=== PATIENT | male | born 1985 | race Caucasian/White ===

== ENCOUNTER 2024-04-13 11:42 | Emergency (ER) | payer OTHER ==
[2024-04-13 11:49] VITALS: RESP 18; TEMP 98
--- NOTE | 2024-04-13 12:08 | XR ---
EXAMINATION TYPE: XR lumbar spine 2 or 3V DATE OF EXAM: 04/13/2024 12:05 PM CLINICAL INDICATION: Male, 38 years old with history of pain.; [facility] COMPARISON: None TECHNIQUE: XR lumbar spine 2 or 3V - Frontal, lateral and coned in L5-S1 lateral views of the spine. FINDINGS: No evidence of any acute osseous pathology. No evidence of loss of vertebral body height i s seen. There is mild scoliosis alignment of the lumbar vertebral bodies. Scattered disc space narrow ing. Multilevel marginal osteophyte formation throughout the visualized spine. There is facet joint a rthropathy throughout the spine. Scattered at least mild neural foraminal stenosis. IMPRESSION: 1. No acute fracture. 2. Mild multilevel disc degeneration. [facility], , 04/13/2024 12:06 PM
--- NOTE | 2024-04-13 12:38 | ED ---
Back Pain HPI - General Chief Complaint: Back Pain/Injury Stated Complaint: lower back/hip pain Time Seen by Provider: 04/13/24 12:38 Source: patient, RN notes reviewed Limitations: no limitations - History of Present Illness Initial Comments: 38-year-old male presented to ER with a chief complaint of lower back pain. He states he was laying metal sheets on a roof about a week ago when he felt a snap. He states for the past week he has had increasing pain to his lower back and left hip. He states it is painful to walk. He is able to bear weight. Denies any bowel or bladder incontinence, saddle paresthesias, fevers or Hx IV drug use. Patient has tried leftover muscle relaxers, ibuprofen and Tylenol without relief no other injuries or complaints - Related Data Previous Rx's Medication Instructions Recorded Lidocaine 4% Patch 1 patch TOPICAL HS #30 patch 04/13/24 predniSONE 50 mg PO DAILY #5 tab 04/13/24 Allergies Allergy/AdvReac Type Severity Reaction Status Date / Time lisinopril AdvReac Unknown Verified 04/13/24 11:49 Review of Systems ROS Statement: Those systems with pertinent positive or pertinent negative responses have been documented in the HPI. ROS Other: All systems not noted in ROS Statement are negative. Past Medical History Past Medical History: Hypertension Additional Past Medical History / Comment(s): lower back pain . Past Surgical History: No Surgical Hx Reported General Exam - General Exam Comments Initial Comments: Visual Physical Exam Vital signs reviewed General: Well-appearing, nontoxic, no acute distress. Head: Normocephalic, atraumatic Eyes: PERRLA, EOMI ENT: Airway patent Chest: Nonlabored breathing Skin: No visual rash, normal skin tone Neuro: Alert and oriented 3 Musculoskeletal: No gross abnormalities Limitations: no limitations General appearance: alert, in no apparent distress Neck exam: Present: normal inspection. Absent: tenderness, meningismus, lymphadenopathy Respiratory exam: Present: normal lung sounds bilaterally. Absent: respiratory distress, wheezes, rales, rhonchi, stridor Cardiovascular Exam: Present: regular rate, normal rhythm, normal heart sounds. Absent: systolic murmur, diastolic murmur, rubs, gallop, clicks Extremities exam: Present: normal inspection, full ROM, normal capillary refill, other (2+ dorsalis pedis and posterior tibialis pulses bilaterally). Absent: tenderness, pedal edema, joint swelling, calf tenderness Back exam: Present: paraspinal tenderness (Left), other (Straight leg raise bilaterally) Neurological exam: Present: alert, oriented X3, CN II-XII intact Skin exam: Present: warm, dry, intact, normal color. Absent: rash Course Vital Signs 04/13/24 04/13/24 11:46 14:26 Temperature 98 F 98 F Pulse Rate 105 H 93 Respiratory 18 18 Rate Blood Pressure 148/83 128/83 O2 Sat by Pulse 98 98 Oximetry Medical Decision Making - Medical Decision Making I performed the quick note portion of this chart. Electronically signed by Georgi Gorman PA-C Was pt. sent in by a medical professional or institution ([facility], [employer], urgent care, hospital, or alf...) When possible be specific @ -No Did you speak to anyone other than the patient for history (EMS, parent, family, police, friend...)? What history was obtained from this source @ -No Did you review nursing and triage notes (agree or disagree)? Why? @ -I reviewed and agree with nursing and triage notes Were old charts reviewed (outside hosp., previous admission, EMS record, old EKG, old radiological studies, urgent care reports/EKG's, alf records)? Report findings @ -No old charts were reviewed Differential Diagnosis (chest pain, altered mental status, abdominal pain women, abdominal pain men, vaginal bleeding, weakness, fever, dyspnea, syncope, headache, dizziness, GI bleed, back pain, seizure, CVA, palpatations, mental health, musculoskeletal)? @ -Differential Back Pain:Strain, zoster, cauda equina syndrome, epidural abscess, vertebral osteomyelitis, discitis, fracture, subluxation, disc herniation, DJD, spinal stenosis, dissection, AAA, pancreatitis, peptic ulcer disease, pyelonephritis, kidney stone, this is not meant to be an all-inclusive list. EKG interpreted by me (3pts min.). @ -None done X-rays interpreted by me (1pt min.). @ -Lumbar spine x-rays negative for acute fractures or dislocations. CT interpreted by me (1pt min.). @ -None done U/S interpreted by me (1pt. min.). @ -None done What testing was considered but not performed or refused? (CT, X-rays, U/S, labs)? Why? @ -None What meds were considered but not given or refused? Why? @ -Patient refused analgesic medications while in the ER Did you discuss the management of the patient with other professionals (professionals i.e. , PA, EQUITY STRUCTURER, lab, RT, psych nurse, certified social workers in health care, count team member, teacher, cra officer, manager of case)? Give summary @ -No Was smoking cessation discussed for >3mins.? @ -No Was critical care preformed (if so, how long)? @ -No Were there social determinants of health that impacted care today? How? (Homelessness, low income, unemployed, alcoholism, drug addiction, transportation, low edu. Level, literacy, decrease access to med. care, fci, rehab)? @ -No Was there de-escalation of care discussed even if they declined (Discuss DNR or withdrawal of care, Hospice)? DNR status @ -No What co-morbidities impacted this encounter? (DM, HTN, Smoking, COPD, CAD, Cancer, CVA, ARF, Chemo, Hep., AIDS, mental health diagnosis, sleep apnea, morbid obesity)? @ -None Was patient admitted / discharged? Hospital course, mention meds given and route, prescriptions, significant lab abnormalities, going to OR and other pertinent info. @ -Discharge. 38-year-old male presented to the ER with a chief complaint of lumbar back pain. History and physical exam completed. Vitals within normal limits. No red flag back pain symptoms indicative cauda equina syndrome. Patient has full range of motion of bilateral lower extremities. Bilateral lower extremities neurovascular intact. No rashes or wounds. X-rays obtained negative for acute process. Patient refused analgesic medications while in the ER. Upon reevaluation, patient resting comfortably in exam room in no signs of acute distress. Pain believed to be musculoskeletal in nature. Prednisone and lidocaine patches prescribed. Strict return parameters discussed. Advise close follow-up with PCP. Patient verbally expressed understanding agree with care plan. Case discussed with ED attending, Dr. Toscano. Undiagnosed new problem with uncertain prognosis? @ -No Drug Therapy requiring intensive monitoring for toxicity (Heparin, Nitro, Insulin, Cardizem)? @ -No Were any procedures done? @ -No Diagnosis/symptom? @ -Muscle strain/back pain Acute, or Chronic, or Acute on Chronic? @ -Acute Uncomplicated (without systemic symptoms) or Complicated (systemic symptoms)? @ -Uncomplicated Side effects of treatment? @ -No Exacerbation, Progression, or Severe Exacerbation? @ -No Poses a threat to life or bodily function? How? (Chest pain, USA, ID, pneumonia, PE, COPD, DKA, ARF, appy, cholecystitis, CVA, Diverticulitis, Homicidal, Suicidal, threat to staff... and all critical care pts) @ -No - Radiology Data Radiology results: report reviewed, image reviewed Disposition Clinical Impression: Back pain, Musculoskeletal pain Disposition: HOME SELF-CARE Condition: Stable Instructions (If sedation given, give patient instructions): Acute Low Back Pain (ED) Additional Instructions: Take [id number] ibuprofen and Tylenol for pain control. Complete full course of prednisone. You may use lidocaine patches daily for pain control. Follow-up with PCP. Return to the ER for any new or worsening concerns. Prescriptions: Lidocaine 4% Patch 1 patch TOPICAL HS #30 patch predniSONE 50 mg PO DAILY #5 tab Is patient prescribed a controlled substance at d/c from ED?: No Referrals: None,Stated [Primary Care Provider] - 1-2 days Forms: Area PCPs Time of Disposition: 14:28
[2024-04-13 14:28] VITALS: BP 128/83; PULSE 93
== END 2024-04-13 14:38 | disposition home or self-care (01) ==
LOC: EC 11:42
CPT/HCPCS: 72100; 99283

== ENCOUNTER → 2024-08-05 | Outpatient (CLI) | payer BC, OTHER ==
[2024-08-05 08:13] VITALS: BP 154/109; PULSE 97; RESP 19; TEMP 97.5
--- NOTE | 2024-08-05 16:01 | P.PAINPG ---
PQRS Measure Charge Sheet Comment: HISTORY OF PRESENT ILLNESS: A 38 yr old male as a referral from Dr Agustin presents today w severe and chronic LBP since Mar 2023 secondary to radiculopathy, spondylosis and facet arthropathy without myelopathy for evaluation. Pt states pain level is provoked at 9 /10 in intensity, constant, localized in the lumbar spine, predominantly axial, in character w occasional shooting pain towards the L hip, L knee and LLE. Pain is provoked by bending, lifting, twisting. Pain is alleviated by PT x 28 wks which ended in 2022, physician guided home exercises 5 times weekly since 2022, medications (Norc, Naproxen, Medrol dosepack), topical (Lidoderm 4%), repositioning and rest . Oswestry axial pain score at 19. PMH: OA, HTN, GERD, Anxiety PSH: Denies SH: Vape use, No ETOH abuse, No illicit drug use FH: Non contributory All: See list Meds: See list REVIEW OF ORGAN SYSTEMS: CONSTITUTIONAL: No fevers or chills. No recent weight loss. NEUROLOGICAL: + numbness and tingling along the distal extremities. No seizure disorders or headaches. MUSCULOSKELETAL: + pain PSYCHIATRIC: Denies current depression or suicidal thoughts. Physical Examinations : Constitutional : Cooperative , not in acute distress . Neurologic : Cranial nerve II to XII intact. No focal neurological deficits. Psychiatric : alert & oriented x 3. Matching mood & appropriate affect. Judgment & insight intact. Musculoskeletal : Cervical Spine Motor strength in the deltoid and biceps: Normal right side. Normal Left side Motor strength biceps and the wrist extensors: Normal right side . Normal left side Motor strength in the triceps muscle: Normal right side. Normal left side Deep tendon reflexes: Normal at the biceps. Normal at Brachioradialis. Normal at triceps Vertebral body tenderness to deep palpation over Cervical facet loading test: positive bilaterally Spurling test: positive bilaterally Neck distraction test: positive bilaterally Selvin sign: positive bilaterally Lumbar spine Motor strength lower extremities ,thigh and legs 5/5 Right side , 5/5 Left side Deep tendon reflexes : Normal Knee Jerk. Normal Ankle Jerk Vertebral body tenderness over L5 Nj Test positive Lumbar facet Loading Test: positive Right / positive Left Range of motion of the lumbar spine Flexion 30 degrees, extension 10 degrees Straight Leg Raise test: Left/ Right positive at < 30 degrees Marly test: positive right / positive left. Severe tenderness over the Sacroiliac joint on the Right / Left sides Gaenslen test: positive bilaterally Seated flexion test: positive bilaterally. Sacral spine : Severe tenderness over the Sacroiliac joint: right side / left side Range of motion: Flexion of the lumbar spine <60 degrees Range of motion: Extension of the lumbar spine <20 degrees Gaenslen's Test positive Marly test: positive right side / left side Thigh Thrust Test Sacral Thrust Test Imaging: X ray lumbar spine from 04/13/[address] non contrast lumbar spine pending Assessment/ Plan : Multi level lumbar radiculopathy Recommendation of HARITHA L5-S1 #1 and medication management. Risks, benefits of procedure discussed and patient verbalized understanding. Admits to anti- coagulant use or medical history of diabetes. Protocol for discontinuation/ continuation of medications triny procedure discussed. [place] 10/325mg #120 w 1 RF. Use, side effects, adverse reactions, safe storage discussed. Opiate/ narcotic agreement signed 08/05/24. Will discontinue narcotic agreement w previous provider. MAPS reviewed and consistent w medication pickup around 08/18/24. All questions answered. I have spent greater than 30 minutes on patient care today. Dr Ortiz was available by phone for the evaluation of this patient. The time was used to review the medical records including relevant urine studies and Prescription history (MAPs), review of the available imaging, evaluation and examination of the patient, coordination of care with the medical staff and if applicable referring physicians, as well as creation of the medical record - Pain Location Lower Back Non-Pharmacological Interventions: Inactivity Home Medications: Ambulatory Orders Lidocaine 4% Patch 1 patch TOPICAL HS #30 patch 04/13/24 predniSONE 50 mg PO DAILY #5 tab 04/13/24 HYDROcodone/APAP 10-325MG [[place] 10-325] 1 tab PO Q6HR PRN 30 Days #120 tab 08/05/24 HYDROcodone/APAP 10-325MG [[place] 10-325] 1 tab PO QID PRN 30 Days #120 tab 08/05/24 Controlled Substance Measures - Controlled Substance Measures Is patient prescribed a controlled substance at discharge?: Yes When asked, does pt state using other controlled substances?: No If prescribed controlled substance>3 days was MAPS reviewed?: Yes If Rx opioid, was Start Talking consent form obtained?: Yes Was information provided regarding opioid addiction?: Yes
== END ==
LOC: PNWHC3 07:48
PROVIDERS: ATTEND Specialist
DX: M54.16 Radiculopathy, lumbar region (principal); Z88.8 Allergy status to other drugs, medicaments and biological substances
CPT/HCPCS: 99202

== ENCOUNTER → 2024-09-30 | Outpatient (CLI) | payer BC, OTHER ==
[2024-09-30 08:39] VITALS: BP 177/98; PULSE 82; RESP 16
--- NOTE | 2024-09-30 15:44 | P.PAINPG ---
PQRS Measure Charge Sheet Comment: HISTORY OF PRESENT ILLNESS: A 38 yr old male presents today w severe and chronic LBP since Mar 2023 secondary to radiculopathy, spondylosis and facet arthropathy without myelopathy for medication refills. Pt has not brought in CT report as stated at previous visit. Pt states pain level is provoked at 9 /10 in intensity, constant, localized in the lumbar spine, predominantly axial, sharp in character w occasional shooting pain towards the L hip, L knee and LLE. Pain is provoked by bending, lifting, twisting. Pain is alleviated by PT x 28 wks which ended in 2022, massage therapy 1-2 times weekly since mid Jul 2024, physician guided home exercises 5 times weekly since 2022, medications, topical, repositioning and rest . Interventional procedures include Medications include [place] 10/325mg #120, Naproxen, Lidoderm REVIEW OF ORGAN SYSTEMS: CONSTITUTIONAL: No fevers or chills. No recent weight loss. NEUROLOGICAL: + numbness and tingling along the distal extremities. No seizure disorders or headaches. MUSCULOSKELETAL: + pain PSYCHIATRIC: Denies current depression or suicidal thoughts. Physical Examinations : Constitutional : Cooperative , not in acute distress . Neurologic : Cranial nerve II to XII intact. No focal neurological deficits. Psychiatric : alert & oriented x 3. Matching mood & appropriate affect. Judgment & insight intact. Musculoskeletal : Cervical Spine Motor strength in the deltoid and biceps: Normal right side. Normal Left side Motor strength biceps and the wrist extensors: Normal right side . Normal left side Motor strength in the triceps muscle: Normal right side. Normal left side Deep tendon reflexes: Normal at the biceps. Normal at Brachioradialis. Normal at triceps Vertebral body tenderness to deep palpa tion over Cervical facet loading test: positive bilaterally Spurling test: positive bilaterally Neck distraction test: positive bilaterally Selvin sign: positive bilaterally Lumbar spine Motor strength lower extremities ,thigh and legs 5/5 Right side , 5/5 Left side Deep tendon reflexes : Normal Knee Jerk. Normal Ankle Jerk Vertebral body tenderness over L5 Nj Test positive Lumbar facet Loading Test: positive Right / positive Left Range of motion of the lumbar spine Flexion 30 degrees, extension 10 degrees Straight Leg Raise test: Left/ Right positive at < 30 degrees Marly test: positive right / positive left. Severe tenderness over the Sacroiliac joint on the Right / Left sides Gaenslen test: positive bilaterally Seated flexion test: positive bilaterally. Sacral spine : Severe tenderness over the Sacroiliac joint: right side / left side Range of motion: Flexion of the lumbar spine <60 degrees Range of motion: Extension of the lumbar spine <20 degrees Gaenslen's Test positive Marly test: positive right side / left side Thigh Thrust Test Sacral Thrust Test Imaging: X ray lumbar spine from 04/13/24 reviewed Assessment/ Plan : Multi level lumbar radiculopathy Recommendation of MRI non contrast M54.16 and medication management. Would benefit from HARITHA L5-S1 #1. UDS collected 09/30/24. Risks, benefits of procedure discussed and patient verbalized understanding. Admits to anti- coagulant use or medical history of diabetes. Protocol for discontinuation/ continuation of medications triny procedure discussed. [place] 10/325mg #120 w 1 RF. Use, side effects, adverse reactions, safe storage discussed. Opiate/ narcotic agreement signed 08/05/24. Will discontinue narcotic agreement w previous provider. MAPS reviewed and consistent. All questions answered. I have spent greater than 30 minutes on patient care today. Dr Ortiz was available by phone for the evaluation of this patient. The time was used to review the medical records including relevant urine studies and Prescription history (MAPs), review of the available imaging, evaluation and examination of the patient, coordination of care with the medical staff and if applicable referring physicians, as well as creation of the medical record - Pain Location Bilateral Lower Back Non-Pharmacological Interventions: Heat, Ice, Inactivity, Massage, Position/Reposition Pharmacological Interventions: PRN Medication, Scheduled Medication, Topical Medication PQRS Narrative: Narcotic Agreement Date Signed 08/05/24 Hx Alcohol Use (MH) No Home Medications: Ambulatory Orders Lidocaine 4% Patch 1 patch TOPICAL HS #30 patch 04/13/24 predniSONE 50 mg PO DAILY #5 tab 04/13/24 HYDROcodone/APAP 10-325MG [[place] 10-325] 1 tab PO Q6HR PRN 30 Days #120 tab 09/30/24 HYDROcodone/APAP 10-325MG [[place] 10-325] 1 tab PO QID PRN 30 Days #120 tab 09/30/24 Controlled Substance Measures - Controlled Substance Measures Is patient prescribed a controlled substance at discharge?: Yes When asked, does pt state using other controlled substances?: No If prescribed controlled substance>3 days was MAPS reviewed?: Yes
== END ==
LOC: PNWHC3 08:15
PROVIDERS: ATTEND Specialist
DX: M54.16 Radiculopathy, lumbar region (principal); Z88.8 Allergy status to other drugs, medicaments and biological substances
CPT/HCPCS: 80307; G0463; 99212

== ENCOUNTER → 2024-11-25 | Outpatient (CLI) | payer OTHER ==
[2024-11-25 08:24] VITALS: BP 135/96; PULSE 101; RESP 18; TEMP 98.2
--- NOTE | 2024-11-25 15:53 | P.PAINPG ---
PQRS Measure Charge Sheet Comment: HISTORY OF PRESENT ILLNESS: A 39 yr old male presents today w severe and chronic LBP since Mar 2023 secondary to radiculopathy, spondylosis and facet arthropathy without myelopathy for medication refills. Pt has not brought in CT report as stated at previous visit. Pt states pain level is provoked at 9 /10 in intensity, constant, localized in the lumbar spine, predominantly axial, sharp in character w occasional shooting pain towards the L hip, L knee and LLE. Pain is provoked by bending, lifting, twisting. Pain is alleviated by PT x 28 wks which ended in 2022, massage therapy 1-2 times weekly since mid Jul 2024, physician guided home exercises 5 times weekly since 2022, medications, topical, repositioning and rest . Discussed UDS abnormalities of +ETOH metabolites and +Barbiturates. Pt stated he is on Effexor and Atarax (which may cause false positive ) and will refrain from ETOH intake. Repeat UDS. Interventional procedures include Medications include [place] 10/325mg #120, Naproxen, Lidoderm REVIEW OF ORGAN SYSTEMS: CONSTITUTIONAL: No fevers or chills. No recent weight loss. NEUROLOGICAL: + numbness and tingling along the distal extremities. No seizure disorders or headaches. MUSCULOSKELETAL: + pain PSYCHIATRIC: Denies current depression or suicidal thoughts. Physical Examinations : Constitutional : Cooperative , not in acute distress . Neurologic : Cranial nerve II to XII intact. No focal neurological deficits. Psychiatric : alert & oriented x 3. Matching mood & appropriate affect. Judgment & insight intact. Musculoskeletal : Cervical Spine Motor strength in the deltoid and biceps: Normal right side. Normal Left side Motor strength biceps and the wrist extensors: Normal right side . Normal left side Motor strength in the triceps muscle: Normal right side. Normal left side Deep tendon reflexes: Normal at the biceps. Normal at Brachioradialis. Normal at triceps Vertebral body tenderness to deep palpation over Cervical facet loading test: positive bilaterally Spurling test: positive bilaterally Neck distraction test: positive bilaterally Selvin sign: positive bilaterally Lumbar spine Motor strength lower extremities ,thigh and legs 5/5 Right side , 5/5 Left side Deep tendon reflexes : Normal Knee Jerk. Normal Ankle Jerk Vertebral body tenderness over L5 Nj Test positive Lumbar facet Loading Test: positive Right / positive Left Range of motion of the lumbar spine Flexion 30 degrees, extension 10 degrees Straight Leg Raise test: Left/ Right positive at < 30 degrees Marly test: positive right / positive left. Severe tenderness over the Sacroiliac joint on the Right / Left sides Gaenslen test: positive bilaterally Seated flexion test: positive bilaterally. Sacral spine : Severe tenderness over the Sacroiliac joint: right side / left side Range of motion: Flexion of the lumbar spine <60 degrees Range of motion: Extension of the lumbar spine <20 degrees Gaenslen's Test positive Marly test: positive right side / left side Thigh Thrust Test Sacral Thrust Test Imaging: X ray lumbar spine from 04/13/24 reviewed Assessment/ Plan : Multi level lumbar radiculopathy Recommendation of medication refills. Would benefit from HARITHA L5-S1 #1. UDS from 09/30/24 +presumptive barbituates, +presumptive ethyl glucuronide. Will repeat UDS 11/25/24. Risks, benefits of procedure discussed and patient verbalized understanding. Admits to anti- coagulant use or medical history of diabetes. Protocol for discontinuation/ continuation of medications triny procedure discussed. [place] 10/325mg #120 w 1 RF. Use, side effects, adverse reactions, safe storage discussed. Opiate/ narcotic agreement signed 08/05/24. Will discontinue narcotic agreement w previous provider. MAPS reviewed and consistent. All questions answered. I have spent greater than 30 minutes on patient care today. Dr Ortiz was available by phone for the evaluation of this patient. The time was used to review the medical records including relevant urine studies and Prescription history (MAPs), review of the available imaging, evaluation and examination of the patient, coordination of care with the medical staff and if applicable referring physicians, as well as creation of the medical record - Pain Location Lower Back Non-Pharmacological Interventions: Heat, Ice, Position/Reposition, Stretching Pharmacological Interventions: Medication PQRS Narrative: Narcotic Agreement Date Signed 08/05/24 Hx Alcohol Use (MH) No Home Medications: Ambulatory Orders Lidocaine 4% Patch 1 patch TOPICAL HS #30 patch 04/13/24 predniSONE 50 mg PO DAILY #5 tab 04/13/24 HYDROcodone/APAP 10-325MG [[place] 10-325] 1 tab PO Q6HR PRN 30 Days #120 tab 11/25/24 HYDROcodone/APAP 10-325MG [[place] 10-325] 1 tab PO QID PRN 30 Days #120 tab 11/25/24 Controlled Substance Measures - Controlled Substance Measures Is patient prescribed a controlled substance at discharge?: Yes When asked, does pt state using other controlled substances?: Yes If prescribed controlled substance>3 days was MAPS reviewed?: Yes
== END ==
LOC: PNWHC3 07:54
PROVIDERS: ATTEND Specialist
DX: M47.26 Other spondylosis with radiculopathy, lumbar region (principal); E11.9 Type 2 diabetes mellitus without complications; Z88.8 Allergy status to other drugs, medicaments and biological substances
CPT/HCPCS: 80307; G0463; 99212

== ENCOUNTER 2025-01-11 20:45 | Emergency (ER) | payer OTHER ==
[2025-01-11 20:53] VITALS: TEMP 98.7
--- NOTE | 2025-01-11 21:19 | ED ---
General Adult HPI - General Source: patient, EMS, RN notes reviewed, old records reviewed Mode of arrival: EMS Limitations: no limitations <Luisa Choe - Last Filed: 01/12/25 00:21> <Javier Guzmán - Last Filed: 01/12/25 08:01> - General Stated complaint: Alcohol withdraw Time Seen by Provider: 01/11/25 20:48 - History of Present Illness Initial comments: 39-year-old male with a past medical history of alcohol use disorder presents with complaints of nausea and vomiting. Reports his last drink was approximately 4-1/2 hours ago, and since then he has been quite nauseous and has vomited 5 times. Denies any blood or dark appearing substance in the emesis. Reports he does want to stop drinking and is hoping to go to rehab. States since his from him 6 months ago when he lost his job he has been drinking heavily since then. Reports now he drinks approximately half a gallon a day. States he starts to sweat and have tremors when he has not drank any alcohol for approximately 6 to 12 hours. Reports he has gone to the hospital once for alcohol related nausea and vomiting approximately 5 months ago at [facility] where he was admitted due to abnormal electrolytes including a high potassium level. Denies abdominal pain, diarrhea, constipation, admits to diaphoresis. (Luisa Choe) - Related Data Previous Rx's Medication Instructions Recorded Lidocaine 4% Patch 1 patch TOPICAL HS #30 patch 04/13/24 predniSONE 50 mg PO DAILY #5 tab 04/13/24 HYDROcodone/APAP 10-325MG [[place] 1 tab PO Q6HR PRN 30 Days #120 tab 11/25/24 10-325] HYDROcodone/APAP 10-325MG [[place] 1 tab PO QID PRN 30 Days #120 tab 11/25/24 10-325] LORazepam [Ativan] 1 mg PO DIRECTED 3 Days #12 tab 01/12/25 Ondansetron Odt [Zofran Odt] 4 mg PO Q8HR PRN #15 tab 01/12/25 chlordiazePOXIDE HCl [Librium] 50 mg PO TID 3 Days #18 capsule 01/12/25 Allergies Allergy/AdvReac Type Severity Reaction Status Date / Time lisinopril AdvReac Unknown Verified 09/30/24 08:34 Review of Systems ROS Other: All systems not noted in ROS Statement are negative. <Luisa Choe - Last Filed: 01/12/25 00:21> ROS Other: All systems not noted in ROS Statement are negative. <Javier Guzmán - Last Filed: 01/12/25 08:01> ROS Statement: Those systems with pertinent positive or pertinent negative responses have been documented in the HPI. Past Medical History Past Medical History: Hypertension Additional Past Medical History / Comment(s): lower back pain . History of Any Multi-Drug Resistant Organisms: None Reported Past Surgical History: No Surgical Hx Reported Past Psychological History: Anxiety, Depression Smoking Status: Vaper Past Alcohol Use History: Heavy Past Drug Use History: None Reported <Luisa Choe - Last Filed: 01/12/25 00:21> General Exam Limitations: no limitations <Luisa Choe - Last Filed: 01/12/25 00:21> - General Exam Comments Initial Comments: GENERAL: In no apparent distress at the time of examination. Pleasant and cooperative. HEENT: Head is atraumatic, normocephalic. Pupils are equal, round, and reactive to light. Sclerae anicteric. Conjunctivae are clear. Mucus membranes of the mouth are moist. Neck is supple. RESPIRATORY: Clear to auscultation. No wheezes, rales, or rhonchi. No use of accessory muscles. Patient maintaining oxygen saturation greater than 92%. No chest wall tenderness is noted on palpation or with deep breathing. CARDIOVASCULAR: Regular rate and rhythm. S1 and S2 noted. No systolic or diastolic murmur auscultated. No JVD noted. No S3 or S4 noted. GASTROINTESTINAL: Mild distention noted. Abdomen soft and round. Normal active bowel sounds auscultated x 4 quadrants. No pain or tenderness noted upon palpation. INTEGUMENTARY: No cyanosis. No jaundice. No rashes noted. No cellulitis noted. EXTREMITIES: 2+ peripheral pulses. No evidence of peripheral edema. No calf tenderness noted. NEUROLOGIC: Tremor in the bilateral upper extremities appreciated on full extension of bilateral arms PSYCHIATRIC: Awake, alert, and oriented X 3. Appropriate affect. Intact judgement and insight. (Luisa Choe) Course Vital Signs 01/11/25 01/11/25 01/11/25 20:47 20:49 21:42 Temperature 98.7 F Pulse Rate 104 H 93 100 Respiratory 20 16 18 Rate Blood Pressure 153/90 153/90 153/102 O2 Sat by Pulse 96 95 96 Oximetry 01/11/25 01/12/25 22:47 01:12 Temperature Pulse Rate 108 H 118 H Respiratory 18 20 Rate Blood Pressure 157/98 145/100 O2 Sat by Pulse 96 95 Oximetry Medical Decision Making - Lab Data Result diagrams: 01/11/25 21:41 01/11/25 21:41 <Luisa Choe - Last Filed: 01/12/25 00:21> - Lab Data Result diagrams: 01/11/25 21:41 01/11/25 21:41 <Javier Guzmán - Last Filed: 01/12/25 08:01> - Medical Decision Making Was pt. sent in by a medical professional or institution (DAPHNE Bueno, FINISHED METAL REPAIRER, urgent care, hospital, or care home...) When possible be specific @ -No Did you speak to anyone other than the patient for history (EMS, parent, family, police, friend...)? What history was obtained from this source @ -No Did you review nursing and triage notes (agree or disagree)? Why? @ -I reviewed and agree with nursing and triage notes Were old charts reviewed (outside hosp., previous admission, EMS record, old EKG, old radiological studies, urgent care reports/EKG's, care home records)? Report findings @ -No old charts were reviewed Differential Diagnosis? @ -Alcohol withdrawal, alcohol intoxication, gastroenteritis, Darline-Mack, Budd-Chiari, this is not an to be a fully inclusive list. EKG interpreted by me (3pts min.). @ -As above X-rays interpreted by me (1pt min.). @ -None done CT interpreted by me (1pt min.). @ -None done U/S interpreted by me (1pt. min.). @ -None done What testing was considered but not performed or refused? (CT, X-rays, U/S, labs)? Why? @ -None What meds were considered but not given or refused? Why? @ -None Did you discuss the management of the patient with other professionals (professionals i.e. DAPHNE Bueno, FINISHED METAL REPAIRER, lab, RT, psych nurse, social science professor, concrete rod buster, teacher, admissions officer, hospice case manager)? Give summary @ -No Was smoking cessation discussed for >3mins.? @ -No Was critical care preformed (if so, how long)? @ -No Were there social determinants of health that impacted care today? How? (Homelessness, low income, unemployed, alcoholism, drug addiction, transportation, low edu. Level, literacy, decrease access to med. care, group home, r ehab)? @ -No Was there de-escalation of care discussed even if they declined (Discuss DNR or withdrawal of care, Hospice)? DNR status @ -No What co-morbidities impacted this encounter? (DM, HTN, Smoking, COPD, CAD, Cancer, CVA, ARF, Chemo, Hep., AIDS, mental health diagnosis, sleep apnea, morbid obesity)? @ -None Was patient admitted / discharged? Hospital course, mention meds given and route, prescriptions, significant lab abnormalities, going to OR and other pertinent info. @ -Discharged, this is a 39-year-old male presenting with complaints of nausea vomiting and withdrawing from alcohol. Normally drinks half a gallon a day of liquor, his last drink was approximately 4 and half hours before arriving to the ER. Patient had CBC CMP alcohol level drawn, all within normal limits including alcohol level of 123. Patient was given Zofran for nausea and put on the CIWA's protocol. On further evaluation after medication given patient was feeling much better, nausea had resolved and patient was able to eat a sandwich without any issues and drink water. Patient's tremors and sweating also decreased after being placed on CIWA protocol. Patient will be sent home with Librium 50 mg 3 times daily and Ativan 1 mg as needed as well as short course of Zofran as needed. Patient is advised to follow-up with his PCP in 1 to 2 days. Patient wants to stop drinking alcohol and hopes to get checked into rehab within the next 3 days. Undiagnosed new problem with uncertain prognosis? @ -No Drug Therapy requiring intensive monitoring for toxicity (Heparin, Nitro, Insulin, Cardizem)? @ -No Were any procedures done? @ -No Diagnosis/symptom? @ -Alcohol withdrawal Acute, or Chronic, or Acute on Chronic? @ -Acute Uncomplicated (without systemic symptoms) or Complicated (systemic symptoms)? @ -Default Side effects of treatment? @ -No Exacerbation, Progression, or Severe Exacerbation? @ -No Poses a threat to life or bodily function? How? (Chest pain, [place], [place], pneumonia, PE, COPD, DKA, ARF, appy, cholecystitis, CVA, Diverticulitis, Homicidal, Suicidal, threat to staff... and all critical care pts) @ -No (Luisa Choe) I personally saw the patient and performed the critical portion of the service. I discussed the patient care with the resident. I directed management, care planning and final disposition of the patient. This includes, but not limited to, review of all lab work, radiological studies, EKG's, consultations, vital signs, and nursing notes. EKG interpreted by me (3pts min.) @ [as above] X-Rays interpreted by me (1 pt min.) @ [none] CT interpreted by me ( 1pt min.) @ [none] U/S interpreted by me (1 pt min.) @ [none] Critical care time of [0] minutes excluding separately billable procedures was spent in conjunction with critical care activities provided by the Resident and Attending simultaneously. I was present during [no procedures] for all critical portions of the procedure and as immediately available to furnish service during the entire procedure. (Javier Guzmán) - Lab Data Lab Results 01/11/25 01/11/25 Range/Units 21:41 21:41 WBC 9.60 (4.50-10.00) 10*3/uL RBC 4.61 (4.40-5.60) 10*6/uL Hgb 15.3 (13.0-17.0) g/dL Hct 43.7 (39.6-50.0) % MCV 94.8 (80.0-97.0) fL MCH 33.2 H (27.0-32.0) pg MCHC 35.0 (32.0-37.0) g/dL Plt Count 165 (140-440) 10*3/uL MPV 10.9 (9.5-12.2) fL Immature Gran % (Auto) 0.3 % Neutrophils % 60.5 % Lymphocytes % 26.0 % Monocytes % 11.4 % Eosinophils % 0.9 % Basophils % 0.9 % Immature Gran # 0.03 (0.00-0.04) 10*3/uL Neutrophils # 5.80 (1.80-7.70) 10*3/uL Lymphocytes # 2.50 (0.90-5.00) 10*3/uL Monocytes # 1.09 H (0.20-1.00) 10*3/uL Eosinophils # 0.09 (0.04-0.35) 10*3/uL Basophils # 0.09 (0.00-0.10) 10*3/uL Sodium 142 (137-145) mmol/L Potassium 3.5 (3.5-5.1) mmol/L Chloride 101 (98-107) mmol/L Carbon Dioxide 25 (22-30) mmol/L Anion Gap 16 mmol/L BUN 10 (9-20) mg/dL Creatinine 1.11 (0.66-1.25) mg/dL Est GFR (CKD-EPI)AfAm >90 (>60 ml/min/1.73 sqM) Est GFR (CKD-EPI)NonAf 83 (>60 ml/min/1.73 sqM) Glucose 91 (74-99) mg/dL Calcium 9.1 (8.4-10.2) mg/dL Phosphorus 3.6 (2.5-4.5) mg/dL Magnesium 1.2 L (1.6-2.3) mg/dL Amylase 82 (30-110) U/L Lipase 264 (23-300) U/L Serum Alcohol 129 mg/dL Disposition Is patient prescribed a controlled substance at d/c from ED?: Yes When asked, does pt state using other controlled substances?: Yes If prescribed controlled substance>3 days was MAPS reviewed?: Prescribed <3 Days <Luisa Choe - Last Filed: 01/12/25 00:21> <Javier Guzmán - Last Filed: 01/12/25 08:01> Clinical Impression: Alcohol withdrawal syndrome Disposition: HOME SELF-CARE Prescriptions: LORazepam [Ativan] 1 mg PO DIRECTED 3 Days #12 tab chlordiazePOXIDE HCl [Librium] 50 mg PO TID 3 Days #18 capsule Ondansetron Odt [Zofran Odt] 4 mg PO Q8HR PRN #15 tab PRN Reason: Nausea And Vomiting Referrals: Grace Grayson DO [Primary Care Provider] - 1-2 days
[2025-01-11] MEDS ORDERED: LORazepam 1 MG TAB PO PRN ×2 (21:32)
[2025-01-11] MEDS ORDERED: LORazepam 0.5 MG TAB PO PRN (21:32)
[2025-01-11] MEDS: LORazepam 1 MG TAB PO PRN ×2 (21:46→22:45)
[2025-01-11] MEDS: ONDANSETRON 4 MG/2 ML VIAL IVP STA (21:46)
[2025-01-11 21:52] LABS: Basophils # (A) 0.09 10*3/uL (0.00-0.10); Basophils % (A) 0.9 %; Eosinophils # (A) 0.09 10*3/uL (0.04-0.35); Eosinophils % (A) 0.9 %; HCT 43.7 % (39.6-50.0); HGB 15.3 g/dL (13.0-17.0); MCH 33.2 pg (27.0-32.0); MCV 94.8 fL (80.0-97.0); Mean Platelet Volume 10.9 fL (9.5-12.2); Monocytes # (A) 1.09 10*3/uL (0.20-1.00); Monocytes % (A) 11.4 %; Neutrophils % (A) 60.5 %; Platelet Count 165 10*3/uL (140-440); RBC 4.61 10*6/uL (4.40-5.60); RDW 13.7 % (11.5-14.5)
[2025-01-11 22:05] LABS: African American GFR (CKD) >90 (>60 ml/min/1.73 sqM); Amylase 82 U/L (30-110); Anion Gap 16 mmol/L; Blood Urea Nitrogen 10 mg/dL (9-20); Calcium 9.1 mg/dL (8.4-10.2); Carbon Dioxide 25 mmol/L (22-30); Chloride 101 mmol/L (98-107); Glucose 91 mg/dL (74-99); Lipase 264 U/L (23-300); Magnesium 1.2 mg/dL (1.6-2.3); Non-African American GFR(CKD) 83 (>60 ml/min/1.73 sqM); Phosphorus 3.6 mg/dL (2.5-4.5); Potassium 3.5 mmol/L (3.5-5.1); Sodium 142 mmol/L (137-145)
[2025-01-11 22:44] LABS: Alcohol 129 mg/dL
[2025-01-12 01:13] VITALS: BP 145/100; PULSE 118; RESP 20
== END 2025-01-12 01:13 | disposition home or self-care (01) ==
LOC: EC 20:45
DX: F10.239 Alcohol dependence with withdrawal, unspecified (principal); F17.290 Nicotine dependence, other tobacco product, uncomplicated; Y90.6 Blood alcohol level of 120-199 mg/100 ml; Z88.8 Allergy status to other drugs, medicaments and biological substances
CPT/HCPCS: 36415; 80048; 82150; 83690; 83735; 84100; 85025; 99285; 96374; G0480; J2405; 80320